=== PATIENT | female | born 1970 | race Two or more races ===

== ENCOUNTER 2019-06-23 07:59 | Emergency (ER) | payer OTHER ==
[~2019-06-23] VITALS: Ht 152.4 cm; Wt 56.7 kg
[~2019-06-23 07:59] MED LIST: FLUCONAZOLE150 MG PO
== END 2019-06-23 11:20 | disposition home or self-care (01) ==
LOC: ER 07:59
DX: N39.0 Urinary tract infection, site not specified (principal)

== ENCOUNTER 2020-02-15 14:30 | Inpatient (IN) | payer OTHER ==
[~2020-02-15] VITALS: Ht 152.4 cm; Wt 54.4 kg
== END 2020-03-05 14:59 | disposition home or self-care (01) | DRG 331 ==
LOC: ADM 14:30 → SURH 02-29 07:00 → O/R 02-29 09:26 → SURH 02-29 14:30 → ADM 02-29 14:30 → EDSTATUS 02-29 14:30 → SURH 03-01 01:44
PROVIDERS: ADMIT Colon & Rectal Surgery; ATTEND Colon & Rectal Surgery
PROC: 07TB4ZZ Resection of Mesenteric Lymphatic, Percutaneous Endoscopic Approach (ICD-10-PCS; 2020-02-29)
PROC: 0DTN4ZZ Resection of Sigmoid Colon, Percutaneous Endoscopic Approach (ICD-10-PCS; principal; 2020-02-29 07:00)
DX: C20 Malignant neoplasm of rectum (principal); K63.89 Other specified diseases of intestine; R59.0 Localized enlarged lymph nodes; D64.9 Anemia, unspecified

== ENCOUNTER 2020-02-20 08:52 | Day surgery (SDC) | payer OTHER | END 2020-02-20 16:05 | disposition home or self-care (01) | LOC: AMB-ENDOS 08:52 | PROVIDERS: ATTEND Colon & Rectal Surgery | DX: C20 Malignant neoplasm of rectum (principal); Z20.828 Contact with and (suspected) exposure to other viral communicable diseases; K64.8 Other hemorrhoids ==

== ENCOUNTER 2022-09-22 09:21 | Day surgery (SDC) | payer OTHER | END 2022-09-22 17:50 | disposition home or self-care (01) | LOC: AMB-ENDOS 09:21 | PROVIDERS: ATTEND Colon & Rectal Surgery | DX: Z85.048 Personal history of other malignant neoplasm of rectum, rectosigmoid junction, and anus (principal); K63.89 Other specified diseases of intestine; K64.8 Other hemorrhoids; Z20.822 Contact with and (suspected) exposure to COVID-19 ==